=== PATIENT | female | born 1975 | race Caucasian/White ===

== ENCOUNTER 2016-11-07 16:29 | Emergency (ER) | payer OTHER ==
[~2016-11-07] VITALS: Ht 162.5 cm; Wt 57.2 kg
[2016-11-07 17:17] LABS: BILIRUBIN 1+ (NEGATIVE); BLOOD TRACE-INTACT (NEGATIVE); CLARITY SL CLOUDY (CLEAR); COLOR YELLOW (YELLOW); GLUCOSE TRACE (NEGATIVE); KETONE NEGATIVE (NEGATIVE); LEUKO ESTERASE NEGATIVE (NEGATIVE); NITRITE NEGATIVE (NEGATIVE); PH 5.5 (5.0-9.0); PROTEIN 1+ (NEGATIVE); SPECIFIC GRAVITY 1.025 (1.005-1.030)
[2016-11-07 17:26] LABS: BACTERIA 1+; EPITHELIAL CELLS TNTC; MUCOUS TRACE
[2016-11-07 17:30] LABS: URINE REFLEX COMMENT NO (NO)
[2016-11-07 17:51] LABS: BASO % 0.2 % (0.0-1.0); EOS % 0.1 % (1.0-4.0); HEMATOCRIT 39.8 % (37.0-47.0); HEMOGLOBIN 13.3 g/dl (12.0-16.0); IG # 0.1 10*3/uL (0.0-0.1); LYMPH # 0.8 10*3/uL (1.3-4.4); LYMPH % 4.9 % (27.0-41.0); MEAN CELL VOLUME 94.8 fl (81.0-99.0); MEAN CORPUSCULAR HGB 31.7 pg (27.0-31.0); MEAN CORPUSCULAR HGB CONC 33.4 g/dl (33.0-37.0); MEAN PLATELET VOLUME 11.7 fl (9.6-12.3); MONO # 1.2 10*3/uL (0.1-1.0); MONO % 7.3 % (3.0-9.0); NEUT # 14.8 10*3/uL (2.3-7.9); NEUT % 86.7 % (47.0-73.0); PLATELET COUNT AUTOMATED 174 10*3/uL (130-400); RED CELL DISTRI WIDTH 12.6 % (0-14.5)
[2016-11-07 18:02] LABS: PROTHROMBIN TIME 10.8 SECONDS (9.0-12.4)
[2016-11-07 18:07] LABS: ALBUMIN 3.4 gm/dl (3.1-4.5); ALKALINE PHOSPHATASE 101 U/L (45-117); BILIRUBIN, TOTAL 0.8 mg/dl (0.2-1.0); BUN 18 mg/dl (7-24); CARBON DIOXIDE 25 mmol/L (21-32); CHLORIDE 103 mmol/L (98-107); CKMB 0.7 ng/ml (0.5-3.6); CPK 87 U/L (26-192); EST GLOM FILT AFRICAN AMERICAN > 60 ml/min; GLUCOSE 102 mg/dL (65-99); MAGNESIUM 2.1 mg/dL (1.5-2.1); SGOT/AST 41 IU/L (3-35); SGPT/ALT 70 U/L (12-78); SODIUM 135 mmol/L (136-145); TOTAL PROTEIN 8.3 gm/dL (6.4-8.2)
[2016-11-07 18:11] LABS: TROPONIN I < 0.015 ng/ml (<0.045)
[2016-11-07 19:10] LABS: URINE AMPHETAMINES > 1000 (1000ng/ml); URINE BARBITURATES < 200 (200ng/ml); URINE COCAINE < 300 (300ng/ml)
== END 2016-11-07 20:32 | disposition short-term general hospital (02) ==
LOC: ED 16:29
PROVIDERS: Student in an Organized Health Care Education/Training Program
DX: M54.9 Dorsalgia, unspecified (principal); F19.10 Other psychoactive substance abuse, uncomplicated; F17.200 Nicotine dependence, unspecified, uncomplicated